=== PATIENT | female | born 1950 | race Asian ===

== ENCOUNTER 2025-03-24 03:35 | Emergency (ER) | payer OTHER, MEDICAID, SELFPAY ==
[2025-03-24 03:37] VITALS: BMI 23.6
[2025-03-24 03:46] VITALS: BP 173/94; PULSE 93; RESP 18; TEMP 36.7; O2SAT 97
[2025-03-24] MEDS: HYDROcodone/APAP 5/325 TABLET 1 TAB PO (04:01)
--- NOTE | 2025-03-24 04:10 | PD.EDSKIN ---
ED Skin Abcess FB-RME/HPI General Chief complaint: Abdominal Pain Stated complaint: ABD PAIN, PAIN WITH URINATION Time Seen by Provider: 03/24/25 03:49 Arrival date/time: 03/24/25 03:35 75F with history of hypothyroidism and HTN presents to ED with 1.5 weeks of rash on L buttock that extends to the front, as well as some dysuria. Patient went to PCP and is currently on anti-viral, gabapentin, and Keflex. Limitations: no limitations Related Data Home Medications ?Medication ?Instructions ?Recorded ?Confirmed Levothyroxine * (SYNTHROID *) 50 mcg PO QDAY #0 tabs 01/09/14 Losartan Potassium * (COZAAR *) 50 mg PO QDAY #0 tabs 01/09/14 metformin 500 mg tablet 500 mg PO BIDAC #0 tabs 01/09/14 (Glucophage) simvastatin 20 mg tablet (Zocor) 20 mg PO HS #0 tabs 01/09/14 Previous Rx's ?Medication ?Instructions ?Recorded hydrocodone 5 mg-acetaminophen 325 1 tab PO BID PRN pain #14 tabs 03/24/25 mg tablet Allergies Allergy/AdvReac Type Severity Reaction Status Date / Time No Known Allergies Allergy Unknown Uncoded 03/24/25 03:37 Review of Systems Review of Systems Systems Reviewed: All systems reviewed, normal except as documented Genitourinary Genitourinary: Reports as per HPI and Reports dysuria Integumentary/Breasts Skin/Breast: Reports as per HPI and Reports skin pain Past Medical History Social History SMOKING STATUS: Never smoker ED Exam General Limitations: Present no limitations General appearance: Present alert and in no apparent distress Head Head exam: Present atraumatic Neck Neck exam: Present normal inspection, full ROM and trachea midline Chest Chest inspection: Present normal inspection and symmetric chest wall rise Neurological Exam Neurological exam: Present alert and oriented X3 Psychiatric Psychiatric exam: Present normal affect and normal mood Skin Skin exam: Present warm, dry, intact, normal color and rash Course Quality Measures none Orders Category Date Time Status HYDROcodone*/APAP 5/325 [[place] 5/325] Med 03/24/25 03:50 Discontinued 1 tab PO X1 ONE Vital Signs Vital signs: Vital Signs Temperature 98.1 F 03/24/25 03:46 Pulse Rate 93 03/24/25 03:46 Respiratory Rate 18 03/24/25 03:46 Blood Pressure 173/94 H 03/24/25 03:46 Pulse Oximetry (%) 97 03/24/25 03:46 Oxygen Delivery Method Room Air 03/24/25 03:46 O2 at 97% on RA and WNLs Skin / Abscess / Foreign Body MDM Narrative MDM Narrative:: 75F with history of hypothyroidism and HTN presents to ED with 1.5 weeks of rash on L buttock that extends to the front, as well as some dysuria. Patient went to PCP and is currently on anti-viral, gabapentin, and Keflex. Physical exam with residential solar consultant SILVER Iglesias reveals vesicular rash on L buttock in a dermatomal pattern. Patient is afebrile, calm, and alert. Dysuria likely from shingles rash in that area rather than true UTI, though patient is already on Keflex anyway. Meds and addictions counselor assistant. Patient data External records reviewed:: [facility] previous records Clinical information provided by:: patient Social determinants that could affect healthcare access:: none Patient has the following chronic illnesses:: hypothyroidism and HTN How is presenting disease/condition affected by chronic disease/condition?: uneffected by Evaluation data The following diagnostics were reviewed and interpreted by me:: other (specify) (none) Lab and/or radiology exams considered but not ordered:: not ordered Interpretation Summary: n/a Medications / Prescriptions Medications or Prescriptions considered but not ordered:: ordered Medication administrations:: Medication Administration History Discontinued Medications Hydrocodone Bitart/Acetaminophen (Hydrocodone/Apap 5/325 Tablet) 1 tab PO X1 ONE Stop: 03/24/25 03:51 Last Admin: 03/24/25 04:01 Dose: 1 tab Documented By: above Consultations Consultation(s) initiated? (list below): No Diagnosis Skin/Abscess Differential Diagnosis: abscess of skin or subcutaneous tissue, viral exanthem, dermatophytosis, urticaria, herpes zoster, allergic reaction to drug, cellulitis, eczema, insect bites, impetigo and contact dermatitis Most likely diagnosis given after review of the tests above:: shingles Admission Indicated Admission indicated?: not indicated Admission Request Was there a request for admission?: No Disposition Plan Disposition Plan: Discharge Discharge Attestation Discharge Attestation: The patient and all family members were given an opportunity to ask questions and understood the discharge instructions. Discharge instructions specifically effects, indications for sooner follow up or return to the emergency department, and the expected course of current diagnosis. Patient condition: Stable Discharge Plan Plan Patient Disposition: HOME (Self Care) Discharge Disposition comment: Stable Prescriptions/Referrals Prescriptions/Med Rec: New hydrocodone-acetaminophen 5-325 mg tablet 1 tab PO BID MDD 2 PRN (Reason: pain) Qty: 14 0RF No Action metformin [Glucophage] 500 MG tablet 500 mg PO BIDAC Qty: 0 simvastatin [Zocor] 20 MG tablet 20 mg PO HS Qty: 0 Losartan Potassium * (COZAAR *) 50 MG tablet 50 mg PO QDAY Qty: 0 Levothyroxine * (SYNTHROID *) 50 MCG tablet 50 mcg PO QDAY Qty: 0 Problem List Clinical Impression: Shingles Patient/Caregiver Discharge Instructions Education Materials: ED Shingles (Herpes Zoster) Additional Instructions: Please follow-up with PCP within 24-48 hours and return immediately if symptoms worsen. Print Language: [place] Stand Alone Forms: Patient Portal Info Letter SUNDAY/ISA Supervising Physician SUNDAY/ISA Supervising Physician: Dr. Tinoco
== END 2025-03-24 04:05 | disposition home or self-care (01) ==
LOC: SERX 04:13
PROVIDERS: Emergency Provider Emergency Medicine; PCP Family Medicine
DX: B02.9 Zoster without complications (principal)
CPT/HCPCS: 99281; A9270